=== PATIENT | female | born 1955 | race American Indian/Alaskan Native ===

== ENCOUNTER 2016-04-15 18:41 | Emergency (ER) | payer BC ==
[2016-04-15] MEDS ORDERED: TYLENOL PO ONE (22:15)
[2016-04-15] MEDS ORDERED: XYLOCAINE 2% INFILTRATI ONE (22:32)
[2016-04-15] MEDS ORDERED: BOOSTRIX IM ONE (22:32)
[2016-04-15] MEDS ORDERED: CATAPRES PO ONE (22:32)
--- NOTE | 2016-04-15 22:36 | Emergency Department Report ---
HPI - General Chief Complaint: Wound/Laceration Time Seen by Provider: 04/15/16 22:21 - HPI HPI: This is a 60-year-old -[place] female presents to the emergency department from home after she hit her head causing a forehead laceration. Patient says that she heard something in her kitchen and ran out of there and ended up hitting her head on the leg of a table. She is unsure whether she slipped on something or just lost her balance but she denies any loss of consciousness before or after the fall. She is unsure her last tetanus update. She denies any past medical history but does have a primary care doctor in Dr. 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 Oliver. Patient presents with very elevated blood pressure but denies any history of diagnosed hypertension. She is not taken anything for symptoms prior to presentation. She denies any neck pain, back pain, chest pain, shortness of breath or any neurological deficits. ED Past Medical Hx - Past Medical History Previous Medical History?: No - Surgical History Past Surgical History?: Yes Additional Surgical History: clean heart cath 2011 with dru heart - Social History Smoking Status: Never Smoker Substance Use Type: Alcohol - Medications Home Medications: Home Medications Medication Instructions Recorded Confirmed Last Taken Type Azithromycin [Zithromax] 250 mg PO DAILY #6 tablet 11/18/15 Unknown Rx Chlorpheniramine/Phenylephrine 1 each PO BID #10 tablet 11/18/15 Unknown Rx [Ed-A-Hist 4 mg-10 mg Tablet] Amlodipine Besylate [Norvasc] 2.5 mg PO DAILY #30 tab 04/16/16 Unknown Rx ED Review of Systems ROS: Stated complaint: FOREHEAD LAC Other details as noted in HPI Comment: All other systems reviewed and negative Constitutional: denies: chills, fever Eyes: denies: eye pain, eye discharge, vision change ENT: denies: ear pain, throat pain Respiratory: denies: cough, shortness of breath, wheezing Cardiovascular: denies: chest pain, palpitations Gastrointestinal: denies: abdominal pain, nausea, diarrhea Genitourinary: denies: urgency, dysuria, discharge Musculoskeletal: denies: back pain, joint swelling, arthralgia Skin: other (laceration). denies: pruritus Neurological: denies: numbness, paresthesias Physical Exam - Physical Exam Vital Signs: Vital Signs 04/15/16 18:47 Temperature 98.3 F Pulse Rate 74 Respiratory 16 Rate Blood Pressure 199/123 O2 Sat by Pulse 99 Oximetry Physical Exam: GENERAL: The patient is well-developed well-nourished. HEENT: Normocephalic. Pupils equal reactive to light bilaterally. Extraocular motions are intact. Patient has moist mucous membranes. NECK: Supple. Trachea is midline. CHEST/LUNGS: Clear to auscultation. There is no respiratory distress noted. HEART/CARDIOVASCULAR: Regular. There is no tachycardia. There is no gallop rub or murmur. ABDOMEN: Abdomen is soft, nontender. Patient has normal bowel sounds. There is no abdominal distention. Obese habitus. SKIN: There is a superficial laceration to the middle of the forehead that is mostly linear but the inferior portion then turns into a inverted V. There is no current bleeding, no surrounding erythema, and no purulent discharge. NEURO: The patient is awake, alert, and oriented. The patient is cooperative. The patient has no focal neurologic deficits. The patient has normal speech and gait. Cranial nerves II through XII grossly intact. MUSCULOSKELETAL: There is no tenderness or deformity. There is no limitation range of motion. Muscle strength 5 out of 5 upper and lower extremities bilaterally. ED Course Vital Signs 04/15/16 18:47 Temperature 98.3 F Pulse Rate 74 Respiratory 16 Rate Blood Pressure 199/123 O2 Sat by Pulse 99 Oximetry - Laceration /Wound Repair Face Wound Location: face (mid forehead) Wound Length (cm): 3 Wound's Depth, Shape: superficial, linear (inferior portion turns into inverted V) Wound Explored: clean Anesthesia: 1% Lidocaine Volume Anesthetic (ccs): 4 Wound Repaired With: sutures Suture Size/Type: 6:0, proline Number of Sutures: 6 Layer Closure?: No Sterile Dressing Applied?: Yes ED Medical Decision Making - Lab Data Result diagrams: 04/15/16 22:49 04/15/16 22:49 - Radiology Data Radiology results: report reviewed CT of the head does not show any acute process including no hemorrhage, mass, shift, diffuse edema or skull fracture. - Medical Decision Making 60-year-old female presents to the emergency department after she fell at home and hit her head on the leg of a table causing a forehead laceration. Upon presentation here she is found to have very elevated blood pressure. Patient was given a dose of Catapres and her blood pressure came down to more reasonable level. She had a CT of the head that did not show any bleed, shift, mass or any acute process. The laceration was closed without any complications. Patient's labs have been unremarkable. She was started on low- dose Norvasc and has good follow-up with primary care and cardiology. We discussed dietary changes to help with her blood pressure. She knows that the sutures come out in 7 days but she needs to be seen sooner if there is signs of infection. She will return to the ER with any worsening of her symptoms or any acute distress. - Differential Diagnosis laceration, skull fracture, brain bleed, hypertensive urgency Critical Care Time: No Critical care attestation.: If time is entered above; I have spent that time in minutes in the direct care of this critically ill patient, excluding procedure time. ED Disposition Clinical Impression: Hypertensive urgency Fall Qualifiers: Encounter type: initial encounter Qualified Code(s): W19.XXXA - Unspecified fall, initial encounter Forehead laceration Qualifiers: Encounter type: initial encounter Qualified Code(s): S01.81XA - Laceration without foreign body of other part of head, initial encounter Disposition: DISCHARGED TO HOME OR SELFCARE Is pt being admited?: No Does the pt Need Aspirin: No Condition: Stable Instructions: Suture Care (ED), Laceration (ED), Hypertension (ED) Additional Instructions: Please follow-up with your primary care doctor and/or beauty operator apprentice. I have started you on a blood pressure medication called Norvasc. Keep a blood pressure log. Try to stay away from foods that are high in salt and caffeinated products to help with her blood pressure. The sutures need to be removed in 1 week. This can be done at a primary care doctor office, urgent care, or in the emergency department. He should be seen sooner or return to the emergency department with any surrounding redness, discharge of pus or any concerns of infection, or any acute distress. Prescriptions: Amlodipine Besylate [Norvasc] 2.5 mg PO DAILY #30 tab Referrals: ISAAC CHATMAN MD [Primary Care Provider] - 3-5 Days JULIÁN OLIVER MD [Staff Physician] - 3-5 Days Time of Disposition: 00:38
[2016-04-15 23:11] LABS: Basophils % (Auto) 0.3 % (0.0-1.8); Eosinophils % (Auto) 0.5 % (0.0-4.3); Mean Corpuscular HGB Conc 32 % (30-34); Mean Corpuscular Hemoglobin 28 pg (28-32); Mean Corpuscular Volume 89 fl (79-97); Platelet Count 202 K/mm3 (140-440); Red Blood Count 4.95 M/mm3 (3.65-5.03); Red Cell Distribution Width 14.9 % (13.2-15.2)
[2016-04-15 23:25] LABS: Anion Gap 19 mmol/L; BUN/Creatinine Ratio 18.33; Blood Urea Nitrogen 11 mg/dL (7-17); Calcium 8.7 mg/dL (8.4-10.2); Carbon Dioxide 25 mmol/L (22-30); Chloride 101.7 mmol/L (98-107); Glucose 101 mg/dL (65-100); Potassium 5.1 mmol/L (3.6-5.0); Sodium 141 mmol/L (137-145)
--- NOTE | 2016-04-15 23:27 | Cat Scan Report ---
FINAL REPORT PROCEDURE: CT HEAD/BRAIN WO CON TECHNIQUE: Computerized tomography of the head was performed without contrast material. HISTORY: fall/hit head/head laceration COMPARISON: No prior studies are available for comparison. FINDINGS: Skull and scalp: There is left frontal scalp laceration and swelling. There is no hematoma. There is no skull fracture.. Paranasal sinuses: Normal. Ventricles and subarachnoid spaces: There is mild central and cortical atrophy. There is no hydrocephalus or asymmetry.. Cerebrum: No evidence of hemorrhage, acute infarction or mass . Cerebellum and brainstem: No evidence of hemorrhage, acute infarction or mass. Vasculature: Normal. Comments: None. IMPRESSION: There is frontal scalp swelling and laceration. There is no skull fracture. There is no intracranial hemorrhage.
[2016-04-15 23:58] VITALS: BP 154/100
== END 2016-04-16 01:09 | disposition home or self-care (01) ==
LOC: ED 18:41
DX: S01.81XA Laceration without foreign body of other part of head, initial encounter (principal); I10 Essential (primary) hypertension; W18.30XA Fall on same level, unspecified, initial encounter; Y93.9 Activity, unspecified; Y92.9 Unspecified place or not applicable; Y99.9 Unspecified external cause status
CPT/HCPCS: 36415; 70450; 80048; 84443; 84484; 85025; 90471; 90715

== ENCOUNTER 2016-04-24 12:11 | Emergency (ER) | payer SELFPAY ==
[2016-04-24] MEDS ORDERED: NORCO 5/325 PO ONE (17:07)
--- NOTE | 2016-04-24 17:13 | Emergency Department Report ---
ED General Adult HPI - General Chief complaint: Laceration/Recheck/Suture Stated complaint: SUTURE REMOVAL Time Seen by Provider: 04/24/16 16:45 Source: patient Mode of arrival: Ambulatory Limitations: No Limitations - History of Present Illness Initial comments: PT states she was here after she walked into a table on 04-15-16 and required laceration repair of forehead. PT states after she was seen, she noticed L wrist pain and L knee bruising and swelling. PT states she is on an ASA. MD Complaint: suture removal, L knee injury Location: head, left, upper extremity, lower extremity Severity scale (0 -10): 3 Quality: constant Consistency: constant Improves with: none Worsens with: other (pain increased after I examined pt's knee ) Treatments Prior to Arrival: Aspirin (pt states she is on ASA daily ) - Related Data Previous Rx's Medication Instructions Recorded Last Taken Type Amlodipine Besylate [Norvasc] 2.5 mg PO DAILY #30 tab 04/16/16 Unknown Rx Acetaminophen/Codeine [Tylenol #3] 1 tab PO Q6H PRN #10 tab 04/24/16 Unknown Rx Allergies Allergy/AdvReac Type Severity Reaction Status Date / Time Penicillins AdvReac Hives Verified 04/24/16 12:30 ED Review of Systems ROS: Stated complaint: SUTURE REMOVAL Other details as noted in HPI Comment: All other systems reviewed and negative Constitutional: other (" I look like the bride of [place]" ) Gastrointestinal: denies: abdominal pain Musculoskeletal: joint swelling, arthralgia. denies: back pain Skin: other (wound to forehead, bruising to L knee ) ED Past Medical Hx - Past Medical History Hx Psychiatric Treatment: Yes (PANIC ATTACKS) Additional medical history: OBESITY - Surgical History Additional Surgical History: clean heart cath 2010 with dru heart. - Social History Smoking Status: Never Smoker Substance Use Type: Alcohol - Medications Home Medications: Home Medications Medication Instructions Recorded Confirmed Last Taken Type Amlodipine Besylate [Norvasc] 2.5 mg PO DAILY #30 tab 04/16/16 Unknown Rx Acetaminophen/Codeine [Tylenol #3] 1 tab PO Q6H PRN #10 tab 04/24/16 Unknown Rx ED Physical Exam - General Limitations: No Limitations General appearance: alert, in no apparent distress - Head Head exam: Present: normocephalic, other (bruising noted to forehead. linear laceration has been repaired with 6 sutures. ) - Eye Eye exam: Present: normal appearance, EOMI - ENT ENT exam: Present: normal exam - Neck Neck exam: Present: normal inspection. Absent: tenderness - Respiratory Respiratory exam: Present: normal lung sounds bilaterally - Cardiovascular Cardiovascular Exam: Present: regular rate, normal rhythm, normal heart sounds - Rectal Rectal exam: Present: deferred - Extremities Exam Extremities exam: Present: full ROM, tenderness, normal capillary refill, joint swelling, other (pt has pain to the ulnar aspect of the L wrist, no deformity or bruising noted. PT has bruising to L knee, + tenderness, + edema ) - Back Exam Back exam: Present: normal inspection. Absent: tenderness - Neurological Exam Neurological exam: Present: alert, oriented X3 - Psychiatric Psychiatric exam: Present: normal affect, normal mood - Skin Skin exam: Present: warm, dry, other (no signs of secondary infection to forehead laceration ) ED Course Vital Signs 04/24/16 04/24/16 12:25 18:38 Temperature 98.2 F Pulse Rate 91 H 77 Respiratory 19 20 Rate Blood Pressure 175/85 Blood Pressure 181/109 [Left] O2 Sat by Pulse 99 96 Oximetry - Reevaluation(s) Reevaluation #1: 04/24/16 17:14 After initial assessment, I removed 6 sutures from pt's forehead. pt tolerated suture removal well. wound remains intact. PT aware of new orders that have been placed. Reevaluation #2: 04/24/16 18:46 PT aware of xr results. PT refused L wrist Velcro splint. PT states she did not start taking the bp medication that she was prescribed because she did not think she really had htn and she wanted to try life style modifications first. PT aware that she will need to take her bp medication and follow up with her pcp to have her bp rechecked and possibly have medications adjusted. PT aware untreated htn can lead to end organ damage. - Pulse Oximetry Interpretation Digit-Finger Initial Pulse Oximetry Readin Actions Taken: none ED Medical Decision Making - Radiology Data Radiology results: image reviewed interpreted by me: L knee - OA, no fx L wrist- no fx - Differential Diagnosis contusion, fx, suture removal Critical care attestation.: If time is entered above; I have spent that time in minutes in the direct care of this critically ill patient, excluding procedure time. ED Disposition Clinical Impression: Visit for suture removal, Left wrist pain, Elevated blood pressure Contusion of left knee Qualifiers: Encounter type: initial encounter Qualified Code(s): S80.02XA - Contusion of left knee, initial encounter Disposition: DISCHARGED TO HOME OR SELFCARE Is pt being admited?: No Does the pt Need Aspirin: No Condition: Stable Instructions: Heart Healthy Diet (ED), DASH Eating Plan (ED), Hypertension (ED) , Contusion in Adults (ED), Wrist Injury (ED), Osteoarthritis (ED) Additional Instructions: RICE No driving or ETOH after taking Tylenol #3 Follow up with your PCP in 2-3 days for bp recheck take your bp medication daily When up and active - POOJA wrap your L knee Wear spf of 45 or greater on your face daily to limit scar formation Referrals: PRIMARY CARE, [Primary Care Provider] - 3-5 Days
[2016-04-24 18:38] VITALS: BP 181/109
--- NOTE | 2016-04-25 08:50 | XRay Report ---
Left knee 3 views. Findings: There are no fractures or other acute findings. There is mild narrowing of the joint space, more pronounced medially. There is narrowing of the patellofemoral joint. Impression: Tricompartmental osteoarthritis.
--- NOTE | 2016-04-25 08:51 | XRay Report ---
LEFT WRIST: Routine views demonstrate the carpal bones to be well mineralized with well preserved bony mineralization and interosseous joint spaces. The carpal and adjacent articular bones have normal contours. The surrounding soft tissues are unremarkable. IMPRESSION: Normal study.
== END 2016-04-24 18:58 | disposition home or self-care (01) ==
LOC: ED 12:11
DX: S80.02XA Contusion of left knee, initial encounter (principal); Z48.02 Encounter for removal of sutures; M25.532 Pain in left wrist; I10 Essential (primary) hypertension; Z88.0 Allergy status to penicillin; W22.03XA Walked into furniture, initial encounter; Y93.89 Activity, other specified; Y99.9 Unspecified external cause status; Y92.89 Other specified places as the place of occurrence of the external cause

== ENCOUNTER 2016-07-17 20:33 | Emergency (ER) | payer SELFPAY ==
--- NOTE | 2016-07-17 22:57 | Cat Scan Report ---
FINAL REPORT PROCEDURE: CT HEAD/BRAIN WO CON TECHNIQUE: Computerized tomography of the head was performed without contrast material. HISTORY: HX HEAD INJURY COMPARISON: 04/15/2016 FINDINGS: Skull and scalp: Normal. Paranasal sinuses: Normal. Ventricles and subarachnoid spaces: Are prominent consistent with cerebral atrophy.. Cerebrum: No evidence of hemorrhage, acute infarction or mass . Cerebellum and brainstem: No evidence of hemorrhage, acute infarction or mass. Vasculature: Normal. Comments: None. IMPRESSION: No acute intracranial abnormality. Cerebral atrophy appropriate for patient's age
[2016-07-18 07:09] LABS: Basophils % (Auto) 0.4 % (0.0-1.8); Hematocrit 43.8 % (30.3-42.9); Hemoglobin 14.1 gm/dl (10.1-14.3); Mean Corpuscular HGB Conc 32 % (30-34); Mean Corpuscular Hemoglobin 29 pg (28-32); Mean Corpuscular Volume 89 fl (79-97); Platelet Count 193 K/mm3 (140-440); Red Blood Count 4.92 M/mm3 (3.65-5.03); White Blood Count 4.5 K/mm3 (4.5-11.0)
[2016-07-18] MEDS ORDERED: NORMODYNE IV ONE (07:16)
[2016-07-18 07:31] LABS: Alanine Aminotransferase 18 units/L (7-56); Albumin 3.9 g/dL (3.9-5); Albumin/Globulin Ratio 1.1 %; Alkaline Phosphatase 70 units/L (35-129); Anion Gap 16 mmol/L; BUN/Creatinine Ratio 21.66; Blood Urea Nitrogen 13 mg/dL (7-17); Calcium 8.9 mg/dL (8.4-10.2); Carbon Dioxide 29 mmol/L (22-30); Chloride 102.8 mmol/L (98-107); Glucose 93 mg/dL (65-100); Potassium 4.2 mmol/L (3.6-5.0); Sodium 144 mmol/L (137-145); Total Protein 7.6 g/dL (6.3-8.2)
[2016-07-18 07:53] LABS: Bilirubin,Direct < 0.2 mg/dL (0-0.2)
[2016-07-18 08:28] VITALS: BP 160/76
[2016-07-18 09:40] LABS: Bacteria,Urine 2+ /HPF (Negative); Bilirubin,Urine NEG (Negative); Blood,Urine MOD (Negative); Ketones,Urine NEG (Negative); Leukocyte Esterase,Urine TR (Negative); Mucus,Urine FEW /HPF; Nitrite,Urine NEG (Negative); Protein,Urine <15 mg/dL mg/dL (Negative); Urobilinogen,Urine < 2.0 mg/dL (<2.0)
--- NOTE | 2016-07-18 09:48 | Emergency Department Report ---
ED General Adult HPI - General Chief complaint: Dizziness Stated complaint: DIZZINESS Time Seen by Provider: 07/18/16 06:33 Source: patient Mode of arrival: Ambulatory Limitations: No Limitations - History of Present Illness Initial comments: Patient complains of vague and intermittent dizziness since yesterday. She states it's exacerbated by movement. Somehow she is attributing this to a head injury that she had an February resulting in sutures. She had a negative CT at that time. Indeed she does have a repeat CT today which was again negative prior to my arrival. She has not had problems with dizziness after the head injury. She states that the symptoms are of less than one day's duration. She denies any focal weakness or numbness. She denies any difficulty with speech or gait. -: Gradual Quality: other (denies any pain) Associated Symptoms: denies other symptoms - Related Data Previous Rx's Medication Instructions Recorded Last Taken Type Acetaminophen/Codeine [Tylenol #3] 1 tab PO Q6H PRN #10 tab 04/24/16 Unknown Rx Amlodipine Besylate [Norvasc] 2.5 mg PO DAILY #30 tab 07/18/16 Unknown Rx Allergies Allergy/AdvReac Type Severity Reaction Status Date / Time Penicillins AdvReac Hives Verified 04/24/16 12:30 ED Review of Systems ROS: Stated complaint: DIZZINESS Other details as noted in HPI Constitutional: denies: chills, fever, weakness Eyes: denies: eye pain, eye discharge, vision change ENT: denies: ear pain, throat pain Respiratory: denies: cough, shortness of breath, wheezing Cardiovascular: denies: chest pain, palpitations Endocrine: no symptoms reported Gastrointestinal: denies: abdominal pain, nausea, diarrhea Genitourinary: denies: urgency, dysuria, discharge Musculoskeletal: denies: back pain, joint swelling, arthralgia Skin: denies: rash, lesions Neurological: other (vague dizziness some spinning sensation but did not persist less than a minute). denies: headache, weakness, paresthesias Psychiatric: denies: anxiety, depression Hematological/Lymphatic: denies: easy bleeding, easy bruising ED Past Medical Hx - Past Medical History Previous Medical History?: Yes Hx Psychiatric Treatment: Yes (PANIC ATTACKS) Additional medical history: OBESITY - Surgical History Past Surgical History?: Yes Additional Surgical History: clean heart cath 2010 with dru heart. - Social History Smoking Status: Never Smoker Substance Use Type: None - Medications Home Medications: Home Medications Medication Instructions Recorded Confirmed Last Taken Type Acetaminophen/Codeine [Tylenol #3] 1 tab PO Q6H PRN #10 tab 04/24/16 Unknown Rx Amlodipine Besylate [Norvasc] 2.5 mg PO DAILY #30 tab 07/18/16 Unknown Rx ED Physical Exam - General Limitations: No Limitations General appearance: alert, in no apparent distress - Head Head exam: Present: atraumatic, normocephalic - Eye Eye exam: Present: normal appearance. Absent: scleral icterus - ENT ENT exam: Present: mucous membranes moist - Neck Neck exam: Present: normal inspection, other. Absent: tenderness, meningismus - Respiratory Respiratory exam: Present: normal lung sounds bilaterally. Absent: respiratory distress - Cardiovascular Cardiovascular Exam: Present: regular rate, normal rhythm. Absent: systolic murmur, diastolic murmur, rubs, gallop - GI/Abdominal GI/Abdominal exam: Present: soft, normal bowel sounds. Absent: distended, tenderness, guarding, rebound, rigid - Extremities Exam Extremities exam: Present: normal inspection - Back Exam Back exam: Present: normal inspection - Neurological Exam Neurological exam: Present: alert, oriented X3, CN II-XII intact. Absent: motor sensory deficit - Psychiatric Psychiatric exam: Present: normal affect, normal mood - Skin Skin exam: Present: warm, dry, intact, normal color. Absent: rash ED Course Vital Signs 07/17/16 07/18/16 07/18/16 21:55 07:00 08:01 Temperature 98.2 F Pulse Rate 70 75 Respiratory 18 18 18 Rate Blood Pressure 151/87 Blood Pressure 192/126 [Right] O2 Sat by Pulse 100 97 97 Oximetry 07/18/16 08:28 Temperature Pulse Rate 67 Respiratory 18 Rate Blood Pressure Blood Pressure 160/76 [Right] O2 Sat by Pulse 100 Oximetry - Reevaluation(s) Reevaluation #1: 07/18/16 09:54 On reexamination the patient was not dizzy. There was no vertigo. She had no neurological symptoms. She felt ready for discharge. Reevaluation #2: Blood pressure was 165/79. I will place the patient back on her amlodipine. 07/18/16 09:54 ED Medical Decision Making - Lab Data Result diagrams: 07/18/16 06:52 07/18/16 06:52 Laboratory Results - last 24 hr 07/18/16 07/18/16 07/18/16 06:52 06:52 09:19 WBC 4.5 RBC 4.92 Hgb 14.1 Hct 43.8 H MCV 89 MCH 29 MCHC 32 RDW 15.0 Plt Count 193 Lymph % (Auto) 45.7 H [place] % (Auto) 9.8 H Eos % (Auto) 1.0 Baso % (Auto) 0.4 Lymph # 2.1 [place] # 0.4 Eos # 0.0 Baso # 0.0 Seg Neutrophils % 43.1 Seg Neutrophils # 2.0 Sodium 144 Potassium 4.2 Chloride 102.8 Carbon Dioxide 29 Anion Gap 16 BUN 13 Creatinine 0.6 L Estimated GFR > 60 BUN/Creatinine Ratio 21.66 Glucose 93 Calcium 8.9 Total Bilirubin 0.20 Direct Bilirubin < 0.2 AST 18 ALT 18 Alkaline Phosphatase 70 Total Protein 7.6 Albumin 3.9 Albumin/Globulin Ratio 1.1 Urine Color Yellow Urine Turbidity Slightly-cloudy Urine pH 6.0 Ur Specific [place] 1.018 Urine Protein <15 mg/dl Urine Glucose (UA) Neg Urine Ketones Neg Urine Blood Mod Urine Nitrite Neg Urine Bilirubin Neg Urine Ictotest Not Reportable Urine Urobilinogen < 2.0 Ur Leukocyte Esterase Tr Urine WBC (Auto) 6.0 Urine RBC (Auto) 4.0 U Epithel Cells (Auto) 5.0 Urine Bacteria (Auto) 2+ Urine Mucus Few - EKG Data -: EKG Interpreted by Me EKG shows normal: sinus rhythm, axis, intervals, QRS complexes, ST-T waves Rate: normal - EKG Data Interpretation: no acute changes - Radiology Data Radiology results: report reviewed (CT the head was negative) Critical care attestation.: If time is entered above; I have spent that time in minutes in the direct care of this critically ill patient, excluding procedure time. ED Disposition Clinical Impression: Uncontrolled hypertension, Dizziness Disposition: DISCHARGED TO HOME OR SELFCARE Is pt being admited?: No Does the pt Need Aspirin: No Condition: Stable Instructions: Hypertension (ED), Dizziness (ED) Additional Instructions: I would recommend a baby aspirin a day. I will place her back on your blood pressure medicine. [facility] be secured at the [facility]. This is important. Return any acute change or additional symptoms. Prescriptions: Amlodipine Besylate [Norvasc] 2.5 mg PO DAILY #30 tab Referrals: PRIMARY CARE, [Primary Care Provider] - 3-5 Days [facility] [Provider Group] - 3-5 Days Time of Disposition: 09:55
== END 2016-07-18 10:10 | disposition home or self-care (01) ==
LOC: ED 20:33
DX: I10 Essential (primary) hypertension (principal)
CPT/HCPCS: 36415; 70450; 80048; 80074; 81001; 85025; 93005; 93010

== ENCOUNTER 2019-03-04 13:53 | Emergency (ER) | payer OTHER ==
[2019-03-04 14:30] VITALS: BP 196/96
--- NOTE | 2019-03-04 14:39 | Event Note ---
ED Screening Note ED Screening Note: STRESSED OUT- OVER 35 YO SON DIZZY NO SOB NO CP PMH OBESE HEART CATH FEW YEARS AGO OK HX PANIC ATTACKS PSH CSEC RX NONE NO HI NO SI This initial assessment/diagnostic orders/clinical plan/treatment(s) is/are subject to change based on patients health status, clinical progression and re- assessment by fellow clinical providers in the ED. Further treatment and workup at subsequent clinical providers discretion. Patient/guardian urged not to elope from the ED as their condition may be serious if not clinically assessed and managed. Initial orders include: RO MEDICAL CAUSE OF SYMPTOMS V ANXIETY DUE TO ISSUES WITH SON- WHICH SHE WILL NOT TELL US
[2019-03-04 15:38] LABS: Basophils % (Auto) 0.4 % (0.0-1.8); Eosinophils % (Auto) 0.4 % (0.0-4.3); Hematocrit 41.2 % (30.3-42.9); Hemoglobin 13.7 gm/dl (10.1-14.3); Lymphocytes # (Auto) 1.1 K/mm3 (1.2-5.4); Lymphocytes % (Auto) 26.9 % (13.4-35.0); Mean Corpuscular HGB Conc 33 % (30-34); Mean Corpuscular Volume 89 fl (79-97); Monocytes # (Auto) 0.4 K/mm3 (0.0-0.8); Monocytes % (Auto) 8.9 % (0.0-7.3); Platelet Count 195 K/mm3 (140-440); Red Blood Count 4.62 M/mm3 (3.65-5.03)
[2019-03-04 16:00] LABS: Alanine Aminotransferase 8 units/L (7-56); Albumin 3.5 g/dL (3.9-5); BUN/Creatinine Ratio 18; Blood Urea Nitrogen 11 mg/dL (7-17); Hemolysis Index 13
--- NOTE | 2019-03-04 16:59 | XRay Report ---
CHEST 2 VIEWS INDICATION / CLINICAL INFORMATION: shortness of breath. COMPARISON: None available. FINDINGS: SUPPORT DEVICES: None. HEART / MEDIASTINUM: There is moderate cardiomegaly. LUNGS / PLEURA: No significant pulmonary or pleural abnormality. No pneumothorax. ADDITIONAL FINDINGS: Moderate thoracolumbar scoliosis is noted. IMPRESSION: Moderate cardiomegaly. Signer Name: Nelson Ruiz MD Signed: 03/04/2019 4:55 PM Workstation Name: [id number]
--- NOTE | 2019-03-04 17:25 | Cat Scan Report ---
CT head without contrast INDICATION : DIZZY. TECHNIQUE: Axial imaging performed from the skull apex through the skull base without the use of con trast. All CT scans at this location are performed using CT dose reduction for ALARA by means of aut omated exposure control. COMPARISON: CT head from 07/17/2016 FINDINGS: Parenchyma: No acute intracranial hemorrhage or parenchymal abnormality. Ventricles: Ventricles are normal in size and appear symmetric. Soft tissues: Soft tissues including the orbits appear normal. Bones: No acute osseous abnormality. Sinuses: Sinuses and mastoid air cells are clear. IMPRESSION: No acute abnormality. Signer Name: Glen Corley MD Signed: 03/04/2019 5:20 PM Workstation Name: [id number]
--- NOTE | 2019-03-04 17:36 | Emergency Department Report ---
ED Dizziness HPI - General Chief Complaint: Anxiety Stated Complaint: FEELING OF ANXIETY Time Seen by Provider: 03/04/19 14:37 Source: patient Mode of arrival: Ambulatory Limitations: No Limitations - History of Present Illness Initial Comments: 63-year-old -[place] female with history of panic disorder with panic attacks presents with complaints of intermittent lightheadedness with ambulation only 2 weeks. She denies any headache, syncopal episodes, vision changes, numbness/tingling/weakness in her limbs, confusion, speech changes, head trauma chest pain, shortness of breath, leg swelling/pain. She reports that she has been under a great deal of stress due to her son being in skilled nursing and that she has been having increased panic attacks. She states she is not on any medication for her anxiety and has never been on medication for anxiety. She states when she gets up and begins to walk, she begins to feel anxious and then she gets li ghtheaded. Blood pressure noted to be elevated, patient denies history of hypertension and states this occurs when she is anxious. MD Complaint: lightheadedness Description: lightheadedness - Related Data Previous Rx's Medication Instructions Recorded Last Taken Type Acetaminophen/Codeine [Tylenol #3] 1 tab PO Q6H PRN #10 tab 04/24/16 Unknown Rx Amlodipine Besylate [Norvasc] 2.5 mg PO DAILY #30 tab 07/18/16 Unknown Rx Allergies Allergy/AdvReac Type Severity Reaction Status Date / Time Penicillins AdvReac Hives Verified 03/04/19 14:39 ED Review of Systems ROS: Stated complaint: FEELING OF ANXIETY Other details as noted in HPI Comment: All other systems reviewed and negative Neurological: denies: headache, weakness, numbness, paresthesias, confusion, abnormal gait, vertigo Psychiatric: anxiety. denies: depression, auditory hallucinations, visual hallucinations, homicidal thoughts, suicidal thoughts ED Past Medical Hx - Past Medical History Hx Psychiatric Treatment: Yes (PANIC ATTACKS) Additional medical history: OBESITY - Surgical History Additional Surgical History: clean heart cath 2011 with dru heart. - Social History Smoking Status: Never Smoker Substance Use Type: None - Medications Home Medications: Home Medications Medication Instructions Recorded Confirmed Last Taken Type Acetaminophen/Codeine [Tylenol #3] 1 tab PO Q6H PRN #10 tab 04/24/16 07/18/16 Unknown Rx Amlodipine Besylate [Norvasc] 2.5 mg PO DAILY #30 tab 07/18/16 Unknown Rx ED Physical Exam - General Limitations: No Limitations General appearance: alert, in no apparent distress, obese - Head Head exam: Present: atraumatic, normocephalic - Eye Eye exam: Present: normal appearance, PERRL, EOMI. Absent: scleral icterus - ENT ENT exam: Present: mucous membranes moist - Neck Neck exam: Present: normal inspection, full ROM - Respiratory Respiratory exam: Present: normal lung sounds bilaterally. Absent: respiratory distress - Cardiovascular Cardiovascular Exam: Present: regular rate, normal rhythm. Absent: systolic murmur, diastolic murmur, rubs, gallop - Extremities Exam Extremities exam: Present: normal inspection, full ROM - Back Exam Back exam: Present: normal inspection - Neurological Exam Neurological exam: Present: alert, oriented X3, CN II-XII intact, normal gait. Absent: motor sensory deficit - Expanded Neurological Exam Expanded Cerebellar function: Finger to Nose: Normal, Heel to [place]: Normal, [place]: Normal Sensory exam: Upper Extremity Light Touch: Normal, Lower Extremity Light Touch: Normal Motor strength exam: RUE: 5, LUE: 5, RLE: 5, LLE: 5 Best Eye Response ([place]): (4) open spontaneously Best Motor Response ([place]): (6) obeys commands Best Verbal Response ([place]): (5) oriented [place] Total: 15 - Psychiatric Psychiatric exam: Present: normal affect, normal mood - Skin Skin exam: Present: warm, dry, intact, normal color. Absent: rash, cyanosis, diaphoretic ED Course Vital Signs 03/04/19 03/04/19 03/04/19 14:23 14:38 17:59 Temperature 97.8 F 97.8 F Pulse Rate 90 84 Respiratory 19 16 20 Rate Blood Pressure 196/96 196/96 O2 Sat by Pulse 98 100 Oximetry ED Medical Decision Making - Lab Data Result diagrams: 03/04/19 15:23 03/04/19 15:23 Lab Results 03/04/19 03/04/19 Range/Units 15:23 15:23 WBC 4.1 L (4.5-11.0) K/mm3 RBC 4.62 (3.65-5.03) M/mm3 Hgb 13.7 (10.1-14.3) gm/dl Hct 41.2 (30.3-42.9) % MCV 89 (79-97) fl MCH 30 (28-32) pg MCHC 33 (30-34) % RDW 15.0 (13.2-15.2) % Plt Count 195 (140-440) K/mm3 Lymph % (Auto) 26.9 (13.4-35.0) % [place] % (Auto) 8.9 H (0.0-7.3) % Eos % (Auto) 0.4 (0.0-4.3) % Baso % (Auto) 0.4 (0.0-1.8) % Lymph # 1.1 L (1.2-5.4) K/mm3 [place] # 0.4 (0.0-0.8) K/mm3 Eos # 0.0 (0.0-0.4) K/mm3 Baso # 0.0 (0.0-0.1) K/mm3 Seg Neutrophils % 63.4 (40.0-70.0) % Seg Neutrophils # 2.6 (1.8-7.7) K/mm3 Sodium 141 (137-145) mmol/L Potassium 4.4 (3.6-5.0) mmol/L Chloride 104.4 (98-107) mmol/L Carbon Dioxide 22 (22-30) mmol/L Anion Gap 19 mmol/L BUN 11 (7-17) mg/dL Creatinine 0.6 L (0.7-1.2) mg/dL Estimated GFR > 60 ml/min BUN/Creatinine Ratio 18 % Glucose 97 (65-100) mg/dL Calcium 9.0 (8.4-10.2) mg/dL Total Bilirubin 0.40 (0.1-1.2) mg/dL AST 14 (5-40) units/L ALT 8 (7-56) units/L Alkaline Phosphatase 63 (35-129) units/L Troponin T < 0.010 (0.00-0.029) ng/mL Total Protein 7.4 (6.3-8.2) g/dL Albumin 3.5 L (3.9-5) g/dL Albumin/Globulin Ratio 0.9 % - Radiology Data Radiology results: report reviewed CT head without contrast INDICATION : DIZZY. TECHNIQUE: Axial imaging performed from the skull apex through the skull base without the use of contrast. All CT scans at this location are performed using CT dose reduction for ALARA by means of automated exposure control. COMPARISON: CT head from 07/17/2016 FINDINGS: Parenchyma: No acute intracranial hemorrhage or parenchymal abnormality. Ventricles: Ventricles are normal in size and appear symmetric. Soft tissues: Soft tissues including the orbits appear normal. Bones: No acute osseous abnormality. Sinuses: Sinuses and mastoid air cells are clear. CHEST 2 VIEWS INDICATION / CLINICAL INFORMATION: shortness of breath. COMPARISON: None available. FINDINGS: SUPPORT DEVICES: None. HEART / MEDIASTINUM: There is moderate cardiomegaly. LUNGS / PLEURA: No significant pulmonary or pleural abnormality. No pneumothorax. ADDITIONAL FINDINGS: Moderate thoracolumbar scoliosis is noted. IMPRESSION: Moderate cardiomegaly. - Medical Decision Making 63-year-old -[place] female with history of panic disorder with panic attacks presents with complaints of intermittent lightheadedness with ambulation only 2 weeks. He admits to anxiety preceding the lightheaded episodes. She denies any red flag symptoms. Her neuro exam is normal. CT head and chest x- ray are negative for acute abnormalities. The pressure noted to be significantly elevated upon arrival to the ED at 196/96. Patient denies history of hypertension and states this is due to her anxiety. Urine test still pending, patient handed off to Dr. Hernandez. Patient is stable for discharge home. Recommend follow-up with primary care for further evaluation of her blood pressure. Strict return precautions in detail with patient who verbalizes u nderstanding. Critical care attestation.: If time is entered above; I have spent that time in minutes in the direct care of this critically ill patient, excluding procedure time. ED Disposition Clinical Impression: Anxiety, Lightheadedness, Elevated blood pressure reading Disposition: DC-01 TO HOME OR SELFCARE Is pt being admited?: No Condition: Stable Instructions: Lightheadedness (ED), Anxiety (ED), Hypertension (ED) Referrals: TIM TURNER, OFELIA [Advanced Practice Nurse] - 2-3 Days JEAN COREAS DO [Staff Physician] - 3-5 Days
[2019-03-04 18:08] LABS: Bilirubin,Urine NEG (Negative); Blood,Urine MOD (Negative); Color,Urine Straw (Yellow); Mucus,Urine FEW /HPF; Protein,Urine <15 mg/dL mg/dL (Negative); Urobilinogen,Urine < 2.0 mg/dL (<2.0)
== END 2019-03-04 18:49 | disposition home or self-care (01) ==
LOC: ED 13:53
DX: F41.9 Anxiety disorder, unspecified (principal); R03.0 Elevated blood-pressure reading, without diagnosis of hypertension; E66.9 Obesity, unspecified; Z98.890 Other specified postprocedural states; Z79.899 Other long term (current) drug therapy; Z88.0 Allergy status to penicillin
CPT/HCPCS: 36415; 70450; 71046; 80053; 81001; 84484; 85025; 93005; 93010

== ENCOUNTER 2019-03-09 11:08 | Outpatient (CLI) | payer OTHER ==
[2019-03-09 13:41] LABS: Chol/HDL Ratio 2.62 %
[2019-03-12 14:07] LABS: Vitamin D, 25-OH, D2 <4 ng/mL
== END 2019-03-09 11:09 | disposition home or self-care (01) ==
LOC: LAB 11:08
PROVIDERS: ATTEND Internal Medicine
DX: Z00.00 Encounter for general adult medical examination without abnormal findings (principal); Z13.1 Encounter for screening for diabetes mellitus; Z13.220 Encounter for screening for lipoid disorders; Z13.29 Encounter for screening for other suspected endocrine disorder; Z13.21 Encounter for screening for nutritional disorder
CPT/HCPCS: 36415; 80061; 82306; 82607; 83036; 84443